=== PATIENT | male | born 1940 | race Caucasian/White ===

== ENCOUNTER 2023-01-24 09:45 | Emergency (ER) | payer MEDICARE, OTHER ==
[2023-01-24] MEDS ORDERED: Boostrix 0.5 ML (Tdap) VIAL (>/=7 yrs of age) ONE (10:41)
== END 2023-01-24 11:23 | disposition home or self-care (01) ==
LOC: ERS 09:45
DX: S51.811A Laceration without foreign body of right forearm, initial encounter (principal); I10 Essential (primary) hypertension; W26.9XXA Contact with unspecified sharp object(s), initial encounter; Z23 Encounter for immunization
CPT/HCPCS: 12002; 90471; 90715